=== PATIENT | male | born 1965 | race Caucasian/White ===

== ENCOUNTER 2017-12-07 17:18 | Observation (INO) | payer OTHER ==
[~2017-12-07] VITALS: Ht 177.8 cm; Wt 81.8 kg
[2017-12-07 17:41] LABS: BASOPHILS ABSOLUTE AUTO 0.07 K/mm3 (0.00-0.23); BASOPHILS PERCENT AUTO 1 % (0-2); EOSINOPHILS ABSOLUTE AUTO 0.15 K/mm3 (0.00-0.68); EOSINOPHILS PERCENT AUTO 2 % (0-6); Hematocrit 45.5 % (37.0-53.0); Hemoglobin 15.6 g/dL (13.5-17.5); IMMATURE GRAN ABSOLUTE AUTO 0.06 K/mm3 (0.00-0.10); IMMATURE GRAN PERCENT AUTO 1 % (0-1); LYMPHOCYTES ABSOLUTE AUTO 2.27 K/mm3 (0.84-5.20); LYMPHOCYTES PERCENT AUTO 25 % (21-46); MONOCYTES ABSOLUTE AUTO 0.55 K/mm3 (0.16-1.47); MONOCYTES PERCENT AUTO 6 % (4-13); Mean Corpuscular HGB 31.5 pg (26.0-34.0); Mean Corpuscular HGB Conc 34.3 g/dL (31.5-36.5); Mean Corpuscular Volume 92 fL (80-100); Mean Platelet Volume 8.8 fL (9.1-12.4); NEUTROPHILS ABSOLUTE AUTO 6.04 K/mm3 (1.96-9.15); NEUTROPHILS PERCENT AUTO 66 % (41-73); Platelet Count 207 K/mm3 (150-400); RDW Coefficient Variation 12.3 % (11.7-14.2); RDW Standard Deviation 41.6 fL (35.1-46.3); Red Blood Cell Count 4.96 M/mm3 (4.30-5.90); White Blood Cell Count 9.14 K/mm3 (4.00-11.30)
[2017-12-07 17:44] LABS: Source, Urine Catheter
[2017-12-07 17:47] LABS: Appearance, Urine Cloudy (Clear); Bilirubin, Urine Neg (Neg); Blood, Urine 2+ (Neg); Color, Urine Yellow (P-Yellow); Glucose Qualitative, Urine 4+ (Neg); Ketones, Urine Neg (Neg); Leukocyte Esterase, Urine Neg (Neg); Nitrite, Urine Neg (Neg); Protein, Urine 3+ (Neg); Specific Gravity, Urine 1.015 (1.003-1.022); Urobilinogen, Urine NORM (Normal)
[2017-12-07 18:00] LABS: Amorphous Mod (0-Heavy); Bacteria Few /hpf; Squamous Epithelial Cells Rare /hpf (Few); White Blood Cells, Urine 0-2 /hpf (0-5)
[2017-12-07 18:10] LABS: Alanine Aminotransfer (ALT/SGP 141 U/L (12-78); Albumin, Blood 4.2 g/dL (3.4-5.0); Albumin/Globulin Ratio 0.9 (0.8-1.8); Alk Phos 178 U/L (50-136); Anion Gap 19 mmol/L (6-16); Aspartate Aminotrans (AST/SGOT 135 U/L (12-37); Bilirubin, Total 0.5 mg/dL (0.1-1.0); Blood Urea Nitrogen 8 mg/dL (8-24); Bun/Creatinine Ratio 8.9 (12.0-20.0); CO2, Blood 14 mmol/L (21-32); Calcium, Blood 9.1 mg/dL (8.5-10.1); Chloride, Blood 96 mmol/L (98-108); Globulin, Blood 4.5 g/dL (2.2-4.0); Glomerular Filtration Rate >60 (60-); Glucose, Blood 422 mg/dL (70-99); Potassium, Blood 3.9 mmol/L (3.5-5.5); Sodium, Blood 129 mmol/L (136-145); Total Protein, Blood 8.7 g/dL (6.4-8.2)
[2017-12-07 18:13] LABS: Ethanol (Alcohol), Blood, Med 465 mg/dL
[2017-12-07 18:40] LABS: PCO2 Arterial 36.7 mmHg (35-45); PO2 Arterial 103 mmHg (80-100); pH Blood Arterial 7.26 (7.35-7.45)
[2017-12-07 18:59] LABS: Beta-hydroxybutyrate 6.4 mg/dL (0.2-2.8)
[2017-12-07 19:15] LABS: U Amphetamine Screen Not Detected; U Barbituate Screen Not Detected; U Benzodiazapine Screen Not Detected; U Buprenorphine Screen Not Detected; U Cannabinoids Screen DETECTED; U Cocaine Screen Not Detected; U Methadone Screen Not Detected; U Methamphetamine Screen Not Detected; U Opiates Screen Not Detected; U Oxycodone Screen Not Detected; U Phencyclidine Screen Not Detected; U Propoxyphene Screen Not Detected
[2017-12-07 20:09] LABS: CPK Creatine Kinase 193 U/L (39-308)
[2017-12-08 04:19] LABS: Hematocrit 38.2 % (37.0-53.0); Hemoglobin 13.3 g/dL (13.5-17.5); Mean Corpuscular HGB 31.7 pg (26.0-34.0); Mean Corpuscular HGB Conc 34.8 g/dL (31.5-36.5); Mean Corpuscular Volume 91 fL (80-100); Mean Platelet Volume 8.6 fL (9.1-12.4); Platelet Count 191 K/mm3 (150-400); RDW Coefficient Variation 12.6 % (11.7-14.2); RDW Standard Deviation 41.7 fL (35.1-46.3); Red Blood Cell Count 4.19 M/mm3 (4.30-5.90)
[2017-12-08 04:49] LABS: Alanine Aminotransfer (ALT/SGP 131 U/L (12-78); Albumin, Blood 3.8 g/dL (3.4-5.0); Albumin/Globulin Ratio 0.9 (0.8-1.8); Alk Phos 144 U/L (50-136); Anion Gap 15 mmol/L (6-16); Aspartate Aminotrans (AST/SGOT 160 U/L (12-37); Bilirubin, Total 0.4 mg/dL (0.1-1.0); Blood Urea Nitrogen 6 mg/dL (8-24); Bun/Creatinine Ratio 8.2 (12.0-20.0); CO2, Blood 20 mmol/L (21-32); Calcium, Blood 7.7 mg/dL (8.5-10.1); Chloride, Blood 107 mmol/L (98-108); Creatinine, Blood 0.73 mg/dL (0.60-1.20); Globulin, Blood 4.1 g/dL (2.2-4.0); Glomerular Filtration Rate >60 (60-); Glucose, Blood 185 mg/dL (70-99); Potassium, Blood 3.6 mmol/L (3.5-5.5); Total Protein, Blood 7.9 g/dL (6.4-8.2)
[2017-12-08 05:17] LABS: Sodium, Blood 142 mmol/L (136-145)
[2017-12-08] MEDS ORDERED: PARO10 PO (09:00)
[2017-12-08] MEDS ORDERED: Omeprazole20 M1 PO (09:00)
[2017-12-08] MEDS ORDERED: QUET200 PO (09:01)
[2017-12-08] MEDS ORDERED: AMLO5 PO (09:01)
[2017-12-08] MEDS ORDERED: FENOFIBRATE145 MG PO (09:02)
[2017-12-08] MEDS ORDERED: BUPR150ER PO (09:03)
[2017-12-08] MEDS ORDERED: METO50ER PO (09:03)
[2017-12-08] MEDS ORDERED: INSULANPEN SC (10:41)
[2017-12-08] MEDS ORDERED: LISI5 PO (10:41)
== END 2017-12-08 11:11 | disposition home or self-care (01) ==
LOC: ER 17:18 → ICUW 17:19 → ICUE 17:19
PROVIDERS: Emergency Medicine; Internal Medicine
DX: T67.5XXA Heat exhaustion, unspecified, initial encounter (principal); F10.129 Alcohol abuse with intoxication, unspecified; G92 Toxic encephalopathy; E11.10 Type 2 diabetes mellitus with ketoacidosis without coma; I10 Essential (primary) hypertension; E78.5 Hyperlipidemia, unspecified; F17.220 Nicotine dependence, chewing tobacco, uncomplicated; E86.0 Dehydration; E87.1 Hypo-osmolality and hyponatremia; R79.89 Other specified abnormal findings of blood chemistry; F12.90 Cannabis use, unspecified, uncomplicated; Z79.899 Other long term (current) drug therapy; X30.XXXA Exposure to excessive natural heat, initial encounter
CPT/HCPCS: 36415; 36600; 51701; 51702; 71045; 80053; 81001; 82010; 82550; 82803; 82947; 83036; 83605; 85025; 85027; 93005; 93010; 96361; 96374; 96375; 96376; 99285-25; G0378; G0480; J1630; J2060; J7030

== ENCOUNTER 2019-09-04 15:52 | Emergency (ER) | payer OTHER ==
[~2019-09-04] VITALS: Ht 175.3 cm; Wt 74.8 kg
[~2019-09-04 15:52] MED LIST: AMLO5 PO; BUPR150ER PO; FENOFIBRATE145 MG PO; INSULANPEN SC; LISI5 PO; METO50ER PO; Omeprazole20 M1 PO; PARO10 PO; QUET200 PO
[2019-09-04 16:48] LABS: BASOPHILS ABSOLUTE AUTO 0.04 K/mm3 (0.00-0.23); BASOPHILS PERCENT AUTO 1 % (0-2); EOSINOPHILS PERCENT AUTO 1 % (0-6); Hematocrit 41.2 % (37.0-53.0); Hemoglobin 14.4 g/dL (13.5-17.5); IMMATURE GRAN ABSOLUTE AUTO 0.04 K/mm3 (0.00-0.10); IMMATURE GRAN PERCENT AUTO 1 % (0-1); LYMPHOCYTES ABSOLUTE AUTO 1.66 K/mm3 (0.84-5.20); LYMPHOCYTES PERCENT AUTO 19 % (21-46); MONOCYTES ABSOLUTE AUTO 0.74 K/mm3 (0.16-1.47); MONOCYTES PERCENT AUTO 9 % (4-13); Mean Corpuscular HGB 32.4 pg (26.0-34.0); Mean Corpuscular Volume 93 fL (80-100); Mean Platelet Volume 8.7 fL (9.1-12.4); NEUTROPHILS ABSOLUTE AUTO 6.05 K/mm3 (1.96-9.15); NEUTROPHILS PERCENT AUTO 70 % (41-73); Platelet Count 279 K/mm3 (150-400); RDW Coefficient Variation 11.3 % (11.7-14.2); RDW Standard Deviation 38.6 fL (35.1-46.3); Red Blood Cell Count 4.44 M/mm3 (4.30-5.90); White Blood Cell Count 8.63 K/mm3 (4.00-11.30)
[2019-09-04 17:10] LABS: Alanine Aminotransfer (ALT/SGP 61 U/L (12-78); Albumin/Globulin Ratio 0.9 (0.8-1.8); Alk Phos 230 U/L (50-136); Anion Gap 12 mmol/L (6-16); Aspartate Aminotrans (AST/SGOT 59 U/L (12-37); Bilirubin, Total 0.5 mg/dL (0.1-1.0); Blood Urea Nitrogen 10 mg/dL (8-24); CO2, Blood 21 mmol/L (21-32); Calcium, Blood 9.1 mg/dL (8.5-10.1); Chloride, Blood 96 mmol/L (98-108); Creatinine, Blood 0.84 mg/dL (0.60-1.20); Globulin, Blood 4.3 g/dL (2.2-4.0); Glomerular Filtration Rate >60 (60-); Glucose, Blood 245 mg/dL (70-99); Potassium, Blood 3.5 mmol/L (3.5-5.5); Sodium, Blood 129 mmol/L (136-145); Total Protein, Blood 8.3 g/dL (6.4-8.2)
== END 2019-09-04 17:54 | disposition home or self-care (01) ==
LOC: ER 15:52
PROVIDERS: Emergency Medicine
DX: M54.16 Radiculopathy, lumbar region (principal); R00.0 Tachycardia, unspecified; I10 Essential (primary) hypertension; E78.5 Hyperlipidemia, unspecified; E11.9 Type 2 diabetes mellitus without complications; F17.220 Nicotine dependence, chewing tobacco, uncomplicated; Z91.14 Patient's other noncompliance with medication regimen; Z79.899 Other long term (current) drug therapy; Z79.4 Long term (current) use of insulin
CPT/HCPCS: 72100; 80053; 85025; 96374; 99284-25

== ENCOUNTER → 2019-09-25 | Outpatient (CLI) | payer OTHER | LOC: LAB 18:06 → LAB SHORT 18:06 | DX: E11.9 Type 2 diabetes mellitus without complications (principal) | CPT/HCPCS: 82043 ==

== ENCOUNTER → 2019-09-25 | Outpatient (CLI) | payer OTHER ==
[2019-09-25 18:06] LABS: BASOPHILS ABSOLUTE AUTO 0.04 K/mm3 (0.00-0.23); BASOPHILS PERCENT AUTO 1 % (0-2); EOSINOPHILS ABSOLUTE AUTO 0.09 K/mm3 (0.00-0.68); EOSINOPHILS PERCENT AUTO 1 % (0-6); Hematocrit 40.6 % (37.0-53.0); Hemoglobin 14.2 g/dL (13.5-17.5); IMMATURE GRAN ABSOLUTE AUTO 0.03 K/mm3 (0.00-0.10); IMMATURE GRAN PERCENT AUTO 0 % (0-1); LYMPHOCYTES ABSOLUTE AUTO 1.27 K/mm3 (0.84-5.20); LYMPHOCYTES PERCENT AUTO 18 % (21-46); MONOCYTES ABSOLUTE AUTO 0.71 K/mm3 (0.16-1.47); MONOCYTES PERCENT AUTO 10 % (4-13); Mean Corpuscular HGB 32.9 pg (26.0-34.0); Mean Corpuscular Volume 94 fL (80-100); Mean Platelet Volume 8.9 fL (9.1-12.4); NEUTROPHILS ABSOLUTE AUTO 4.75 K/mm3 (1.96-9.15); NEUTROPHILS PERCENT AUTO 69 % (41-73); Platelet Count 261 K/mm3 (150-400); RDW Coefficient Variation 11.6 % (11.7-14.2); RDW Standard Deviation 39.8 fL (35.1-46.3); Red Blood Cell Count 4.32 M/mm3 (4.30-5.90); White Blood Cell Count 6.89 K/mm3 (4.00-11.30)
[2019-09-25 18:34] LABS: Alanine Aminotransfer (ALT/SGP 58 U/L (12-78); Alk Phos 199 U/L (50-136); Anion Gap 11 mmol/L (6-16); Aspartate Aminotrans (AST/SGOT 44 U/L (12-37); Bilirubin, Total 0.4 mg/dL (0.1-1.0); Blood Urea Nitrogen 6 mg/dL (8-24); Bun/Creatinine Ratio 6.7 (12.0-20.0); CHOL/HDL RATIO 3.3; CO2, Blood 24 mmol/L (21-32); Calcium, Blood 9.7 mg/dL (8.5-10.1); Chloride, Blood 98 mmol/L (98-108); Cholesterol 239 mg/dL (50-200); Glomerular Filtration Rate >60 (60-); Glucose, Blood 151 mg/dL (70-99); HDL Cholesterol 72 mg/dL (>39); LDL/HDL RATIO 1.6; Low Density Lipoprotein Chol 116 mg/dL (0-110); Potassium, Blood 3.6 mmol/L (3.5-5.5); Sodium, Blood 133 mmol/L (136-145); Triglycerides 253 mg/dL (30-160); Very Low Density Lipoprot Chol 50 mg/dL (6-32)
== END ==
LOC: EDSTATUS 14:26 → LAB SHORT 15:53 → LAB 15:53
PROVIDERS: Nurse Practitioner Family
DX: E11.9 Type 2 diabetes mellitus without complications (principal); E78.00 Pure hypercholesterolemia, unspecified
CPT/HCPCS: 36415; 80053; 80061; 83036; 85025

== ENCOUNTER 2021-12-30 11:38 | Inpatient (IN) | payer OTHER ==
[~2021-12-30] VITALS: Ht 175.3 cm; Wt 80.0 kg
[2021-12-30 15:33] LABS: BASOPHILS ABSOLUTE AUTO 0.03 K/mm3 (0.00-0.23); BASOPHILS PERCENT AUTO 1 % (0-2); EOSINOPHILS ABSOLUTE AUTO 0.06 K/mm3 (0.00-0.68); EOSINOPHILS PERCENT AUTO 1 % (0-6); IMMATURE GRAN ABSOLUTE AUTO 0.04 K/mm3 (0.00-0.10); IMMATURE GRAN PERCENT AUTO 1 % (0-1); LYMPHOCYTES ABSOLUTE AUTO 0.82 K/mm3 (0.84-5.20); LYMPHOCYTES PERCENT AUTO 15 % (21-46); MONOCYTES PERCENT AUTO 14 % (4-13); Mean Corpuscular HGB 28.5 pg (26.0-34.0); Mean Corpuscular HGB Conc 33.3 g/dL (31.5-36.5); Mean Corpuscular Volume 86 fL (80-100); Mean Platelet Volume 8.5 fL (9.1-12.4); NEUTROPHILS PERCENT AUTO 69 % (41-73); Platelet Count 167 K/mm3 (150-400); RDW Coefficient Variation 14.4 % (11.7-14.2); Red Blood Cell Count 3.51 M/mm3 (4.30-5.90); White Blood Cell Count 5.55 K/mm3 (4.00-11.30)
[2021-12-30 15:50] LABS: Albumin, Blood 3.6 g/dL (3.4-5.0); Albumin/Globulin Ratio 0.9 (0.8-1.8); Bilirubin, Total 0.6 mg/dL (0.1-1.0); Bun/Creatinine Ratio 9.4 (12.0-20.0); Calcium, Blood 9.3 mg/dL (8.5-10.1); Creatinine, Blood 1.06 mg/dL (0.60-1.20); Globulin, Blood 4.1 g/dL (2.2-4.0); Magnesium, Blood 2.2 mg/dL (1.6-2.4); Potassium, Blood 3.6 mmol/L (3.5-5.5); Total Protein, Blood 7.7 g/dL (6.4-8.2)
[2021-12-30 16:24] LABS: Influenza A, PCR NEGATIVE (NEGATIVE); Influenza B, PCR NEGATIVE (NEGATIVE); Resp Syncytial Virus, PCR NEGATIVE (NEGATIVE); SARS-Cov-2 (COVID-19) PCR, MMC NEGATIVE (NEGATIVE)
[2021-12-30 16:57] LABS: CHOL/HDL RATIO 5.8; Cholesterol 238 mg/dL (50-200); HDL Cholesterol 41 mg/dL (>39); LDL/HDL RATIO 3.7; Low Density Lipoprotein Chol 150 mg/dL (0-110); Triglycerides 233 mg/dL (30-160); Very Low Density Lipoprot Chol 46 mg/dL (6-32)
--- NOTE | 2021-12-30 17:53 | NUR ---
ARRIVAL TO UNIT PT ARRIVED TO UNIT FROM ER VIA GURNEY, SLID SELF OVER TO BED. DENIES PAIN IN LEG WHEN IT IS NOT BEING MANIPULATED ON DECLINES MEDICATION FOR PAIN. [id number]. DISCUSSED NPO AT MIDNIGHT STATUS AND PLAN FOR SURGERY TOMORROW. PT UNDERSTANDS. PRE OP WASH KIT DONE WITH PATIENT. IV INFUSING ON ARRIVAL, WILL START THIAMINE PER EMAR ONCE DONE. PT REPORTS SENSATION TO TOES AND CAN WIGGLE ALL TOES. REPORTS SOME NEUROPATHY AT BASELINE FOR PATIENT. ABRASIONS TO BILATERAL KNEES AND TOES FROM CRAWLING ON THE GROUND. PT REPORTS DRINK 40OZ OF BEER DAILY SINCE 19 YEARS OLD. EDUCATION PROVIDED ON CIWA PROTOCOL.
[2021-12-30] MEDS ORDERED: SERT25 (18:07)
[2021-12-31 04:17] LABS: BASOPHILS ABSOLUTE AUTO 0.02 K/mm3 (0.00-0.23); BASOPHILS PERCENT AUTO 0 % (0-2); EOSINOPHILS ABSOLUTE AUTO 0.07 K/mm3 (0.00-0.68); EOSINOPHILS PERCENT AUTO 1 % (0-6); Hematocrit 31.4 % (37.0-53.0); Hemoglobin 10.1 g/dL (13.5-17.5); IMMATURE GRAN ABSOLUTE AUTO 0.05 K/mm3 (0.00-0.10); IMMATURE GRAN PERCENT AUTO 1 % (0-1); LYMPHOCYTES ABSOLUTE AUTO 0.89 K/mm3 (0.84-5.20); LYMPHOCYTES PERCENT AUTO 16 % (21-46); MONOCYTES ABSOLUTE AUTO 0.85 K/mm3 (0.16-1.47); MONOCYTES PERCENT AUTO 15 % (4-13); Mean Corpuscular HGB 28.1 pg (26.0-34.0); Mean Corpuscular HGB Conc 32.2 g/dL (31.5-36.5); Mean Corpuscular Volume 87 fL (80-100); Mean Platelet Volume 8.6 fL (9.1-12.4); NEUTROPHILS ABSOLUTE AUTO 3.68 K/mm3 (1.96-9.15); NEUTROPHILS PERCENT AUTO 66 % (41-73); Platelet Count 180 K/mm3 (150-400); RDW Coefficient Variation 14.2 % (11.7-14.2); RDW Standard Deviation 45.4 fL (35.1-46.3); White Blood Cell Count 5.56 K/mm3 (4.00-11.30)
[2021-12-31 04:40] LABS: Bun/Creatinine Ratio 10.8 (12.0-20.0); Calcium, Blood 9.1 mg/dL (8.5-10.1); Creatinine, Blood 1.02 mg/dL (0.60-1.20); Potassium, Blood 3.8 mmol/L (3.5-5.5)
--- NOTE | 2021-12-31 06:37 | NUR ---
SHIFT SUMMARY S/P R ANKLE FX, A/O X4, VSS, TOLERATING PO BUT NPO SINCE MIDNIGHT FOR SURGERY, PAIN WELL MANAGED WITHOUT PAIN MEDS, PT PLEASANT AND COOPERATIVE. NO ACUTE EVENTS THIS SHIFT, CALL LIGHT IN REACH, WILL CTM AND REPORT TO ONCOMING DAY RN.
[2021-12-31 10:32] LABS: Percent Saturation 6.3 % (20.0-50.0)
--- NOTE | 2021-12-31 16:16 | NUR ---
9921 TO DAY SURGERY VIA [facility]
--- NOTE | 2021-12-31 17:21 | NUR ---
1715 RETURNED TO ROOM. PT ABLE TO SCOOT SELF FROM STRETCHER TO OWN BED. PT STATES HAS NO FEELING TO RLE, UNABLE TO WIGGLE TOES. TOES WARM BILAT WITH IMMEDIATE CAPILLARY REFILL. DENIES ANY PAIN OR NAUSEA. RLE WITH ICE PLACED BEHIND KNEE AND ON TOP OF ANKLE. FAMILY MEMBERS AT BEDSIDE
[2022-01-01 04:54] LABS: BASOPHILS ABSOLUTE AUTO 0.02 K/mm3 (0.00-0.23); BASOPHILS PERCENT AUTO 0 % (0-2); EOSINOPHILS ABSOLUTE AUTO 0.01 K/mm3 (0.00-0.68); EOSINOPHILS PERCENT AUTO 0 % (0-6); Hematocrit 32.9 % (37.0-53.0); Hemoglobin 10.6 g/dL (13.5-17.5); IMMATURE GRAN ABSOLUTE AUTO 0.07 K/mm3 (0.00-0.10); IMMATURE GRAN PERCENT AUTO 1 % (0-1); LYMPHOCYTES ABSOLUTE AUTO 0.56 K/mm3 (0.84-5.20); LYMPHOCYTES PERCENT AUTO 7 % (21-46); MONOCYTES ABSOLUTE AUTO 0.66 K/mm3 (0.16-1.47); MONOCYTES PERCENT AUTO 9 % (4-13); Mean Corpuscular HGB 28.1 pg (26.0-34.0); Mean Corpuscular HGB Conc 32.2 g/dL (31.5-36.5); Mean Corpuscular Volume 87 fL (80-100); NEUTROPHILS ABSOLUTE AUTO 6.46 K/mm3 (1.96-9.15); NEUTROPHILS PERCENT AUTO 83 % (41-73); Platelet Count 244 K/mm3 (150-400); RDW Coefficient Variation 14.1 % (11.7-14.2); RDW Standard Deviation 45.1 fL (35.1-46.3); Red Blood Cell Count 3.77 M/mm3 (4.30-5.90); White Blood Cell Count 7.78 K/mm3 (4.00-11.30)
[2022-01-01 05:29] LABS: Albumin, Blood 3.6 g/dL (3.4-5.0); Anion Gap 10 mmol/L (6-16); Blood Urea Nitrogen 19 mg/dL (8-24); Bun/Creatinine Ratio 17.9 (12.0-20.0); CO2, Blood 21 mmol/L (21-32); Calcium, Blood 9.7 mg/dL (8.5-10.1); Chloride, Blood 99 mmol/L (98-108); Creatinine, Blood 1.06 mg/dL (0.60-1.20); Glomerular Filtration Rate 83 (60-); Glucose, Blood 139 mg/dL (70-99); Phosphorus, Blood 3.5 mg/dL (2.5-4.9); Potassium, Blood 4.2 mmol/L (3.5-5.5); Sodium, Blood 130 mmol/L (136-145)
[2022-01-01] MEDS ORDERED: METO50ER PO (16:36)
--- NOTE | 2022-01-01 17:01 | NUR ---
SHIFT SUMMARY PT A&OX4, VSS/RA. POD1 ORIF R ANKLE, SPLINT CDI, ELEVATED IN CHAIR. PAIN MANAGED WELL WITH OXY 5 MG AND TYLENOL. NGOC PO. VOIDING WELL/URINAL. AMB NWB WITH FWW/GB, 1 PP MOD ASSIST, UP TO CHAIR FOR DINNER. WILL REPORT TO ONCOMING FRANCISCA SANTILLAN.
--- NOTE | 2022-01-02 03:38 | NUR ---
SHIFT SUMMARY AOX3. POD2 R ANKLE DISTAL FIBULA ORIF WITH LOCKED PLATING. PT HAS SUGAR TONG SPLINT WITH PALOMA WRAP REMAIN CDI. PT REPORTS MILD PAIN T/O SHIFT. VSS. DENIES DIZZINESS, NUMBNESS AND TINGLING SENSATION. PT ABLE TO MOVE ALL EXTREMITIES. NWB ON R LEG. URINAL AT BEDSIDE. VOIDING WITHOUT ISSUE. FLUIDS AT NIGHT AND PT REFUSE TO HAVE IV FLUIDS THIS MORNING. AC/HS CBG, DECLINES CBG CHECK LAST NIGHT. REPORTS SOME MILD H/A AT THE BEGINNING OF SHIFT. TOLERATING PO INTAKE. DENIES N/V. TELE SINUS TACH. CALL LIGHT WITHIN REACH. WILL PROVIDE REPORT TO ONCOMING NURSE.
--- NOTE | 2022-01-02 16:46 | NUR ---
SHIFT SUMMARY PT A&OX4, VSS/RA, NGOC PO, VOIDING/URINAL, PAIN MANAGED WELL WITH TYLENOL AND OXY 5 MG PRN, AMB SBA W/FWW/NWB. POD2 ORIF R ANKLE, SPLINT/PALOMA DRY/INTACT. WILL REPORT TO ONCOMING NOC TYRELL.
--- NOTE | 2022-01-03 04:01 | NUR ---
SHIFT SUMMARY POD #3 ORIF OF R ANKLE. RLE SPLINT WITH PALOMA WRAP C/D/I.NWB ON RLE, ABLE TO REPOSITION SELF IN BED. TOLERATES PO INTAKE, VOIDING IN URINAL. DENIES N/T, N/V. MEDICATED AT BEDTIME WITH HOME MEDS, DENIES PAIN. VSS, CALLS APPROPRIATELY. WILL REPORT TO DAY RN
--- NOTE | 2022-01-03 17:35 | NUR ---
SHIFT SUMMARY POD3 R ANKLE ORIF, A/OX4, VSS, TOLERATING PO, VOIDING IN URINAL, AMBULATES TO BATHROOM FOR BM, PASSING FLATUS. REPORTS PAIN MINIMAL THOUGH STATES NERVE BLOCK IS WEARING OFF, ONLY WANTING TYLENOL AT THIS TIME. DID WELL WITH THERAPY TODAY THOUGH WOUND ON KNEE OPENED AND BLEED ON HIS GOWN, THIS WAS CLEANED AND DRESSED AND NEW GOWN PROVIDED. NO ACUTE EVENTS THIS SHIFT, CALL LIGHT IN REACH, WILL CTM AND REPORT TO ONCOMING NOC RN.
--- NOTE | 2022-01-04 05:10 | NUR ---
SHIFT SUMMARY PT WAS MILDLY HTN AT THE BEGINING OF SHIFT. MEDICATED WITH 10MG HYDRALZINE X1. BP IMPROVED. PT WAS ASYMPTOMATIC. DENIES CP, SOB, LIGHTHEADEDNESS AND DIZZINESS. PT REPORTS MILD H/A, MANAGED WITH TYELNOL. PT STS NO PAIN ON RLE. DENIES N/T. USE URINAL INDEPENDENTLY. VOIDING WITHOUT DIFFICULTY. AOX4. COOPERATIVE AND PLEASANT. CALL LIGHT WITHIN REACH. WILL PROVIDE REPORT TO ONCOMING NURSE.
[2022-01-04] MEDS ORDERED: MULVITA PO (11:21)
--- NOTE | 2022-01-04 16:31 | NUR ---
DISCHARGE SUMMARY POD4 R ANKLE ORIF, A/OX4, VSS, TOLERATING PO, AMBULATING WITH FWW AND MAINTAINING NWB STATUS, WORKED WELL WITH PHYSICAL THERAPY. DISCUSSED SPLINT WITH PT DURING ORTHO ROUNDING. PT PICKED UP BY EMS FOR TRANSPORTATION HOME, ORDERED FWW DELIVERED HERE AND TAKEN WITH PT. ALL PERSONL POSSESSIONS COLLECTED BY PT PRIOR TO DISCHARGE.
--- NOTE | 2022-01-04 17:48 | NUR ---
PT MOM CAME IN TO NUCLEAR TECHNICIAN DISCHARGE PAPERWORK THAT HAD BEEN LEFT BEHIND. DISCUSSED FOLLOW UP INFORMATION WITH HER AT PT REQUEST.
== END 2022-01-04 16:30 | DRG 493 ==
LOC: ER 11:38 → SURS 15:45
PROVIDERS: Orthopaedic Surgery; Student in an Organized Health Care Education/Training Program; ADMIT Internal Medicine
PROC: 2W3SX1Z Immobilization of Right Foot using Splint (ICD-10-PCS; 2021-12-30)
PROC: 0QSJ04Z Reposition Right Fibula with Internal Fixation Device, Open Approach (ICD-10-PCS; principal; 2021-12-31 14:30)
DX: S82.61XA Displaced fracture of lateral malleolus of right fibula, initial encounter for closed fracture (principal); E87.1 Hypo-osmolality and hyponatremia; Z20.822 Contact with and (suspected) exposure to COVID-19; F10.10 Alcohol abuse, uncomplicated; F32.A Depression, unspecified; S82.841A Displaced bimalleolar fracture of right lower leg, initial encounter for closed fracture; E11.9 Type 2 diabetes mellitus without complications; E78.00 Pure hypercholesterolemia, unspecified; I10 Essential (primary) hypertension; R55 Syncope and collapse; K21.9 Gastro-esophageal reflux disease without esophagitis; K20.90 Esophagitis, unspecified without bleeding; K29.70 Gastritis, unspecified, without bleeding; F17.220 Nicotine dependence, chewing tobacco, uncomplicated; W18.30XA Fall on same level, unspecified, initial encounter; Z79.899 Other long term (current) drug therapy; X50.1XXA Overexertion from prolonged static or awkward postures, initial encounter
CPT/HCPCS: 0241U; 27810; 36415; 73562-RT; 73610; 76000; 80048; 80053; 80061; 80069; 82607; 82728; 82746; 82947; 83036; 83540; 83550; 83735; 83880; 84484; 85025; 93005; 93010; 94760; 94762; 96365-59; 96375-59; 97116; 97162; 97530; 99285-25; A9270; C1713; J0171; J0360; J0690; J1100; J1885; J2250; J2270; J2405; J2704; J2795; J3010; J3411; J3475; J7030